=== PATIENT | male | born 1945 | race Caucasian/White ===

== ENCOUNTER 2019-05-31 09:58 | Outpatient (CLI) | payer MEDICARE, OTHER ==
[2019-05-31] MEDS ORDERED: OMNIPAQUE 350 MG/ML, 75ML BOTTLE ONE (15:00)
== END 2019-05-31 23:59 | disposition home or self-care (01) ==
LOC: CFH 09:58
PROVIDERS: ATTEND Internal Medicine
DX: J84.9 Interstitial pulmonary disease, unspecified (principal); D71 Functional disorders of polymorphonuclear neutrophils; J64 Unspecified pneumoconiosis; J98.4 Other disorders of lung
CPT/HCPCS: 71260; Q9967